=== PATIENT | female | born 1980 | race Caucasian/White ===

== ENCOUNTER 2020-08-05 09:05 | Outpatient (REF) | payer OTHER, SELFPAY ==
[2020-08-05 09:24] LABS: COVID-19 Test Negative (Negative)
== END 2020-08-05 09:06 | disposition home or self-care (01) ==
LOC: HO.LAB 09:05
PROVIDERS: Visit Provider Internal Medicine
DX: Z20.822 Contact with and (suspected) exposure to COVID-19 (principal)
CPT/HCPCS: 36415; 87635; C9803

== ENCOUNTER 2020-08-09 09:02 | Outpatient (REF) | payer OTHER, SELFPAY | END 2020-08-09 09:03 | disposition home or self-care (01) | LOC: HO.LAB 09:02 | PROVIDERS: Visit Provider Internal Medicine | DX: Z20.822 Contact with and (suspected) exposure to COVID-19 (principal) | CPT/HCPCS: C9803; U0003; U0005 ==

== ENCOUNTER 2020-08-22 08:04 | Outpatient (REF) | payer OTHER, SELFPAY | END 2020-08-22 08:05 | disposition home or self-care (01) | LOC: HO.LAB 08:04 | PROVIDERS: Visit Provider Internal Medicine | DX: Z20.822 Contact with and (suspected) exposure to COVID-19 (principal) | CPT/HCPCS: C9803; U0003; U0005 ==

== ENCOUNTER 2021-09-12 12:57 | Emergency (ER) | payer OTHER, SELFPAY ==
[2021-09-12 13:32] VITALS: BP 134/87; PULSE 113; RESP 18; TEMP 36.9; O2SAT 98; BMI 29.0
--- NOTE | 2021-09-12 15:35 | ED.SKABFB ---
HPI - Skin/Abscess/Foreign Bdy General Chief complaint: Skin/Abscess/Foreign Body Stated complaint: cyst between legs Time Seen by Provider: 09/12/21 15:11 Source: patient Mode of arrival: ambulatory History of Present Illness HPI narrative: 41-year-old female with no significant past medical history presenting to the ED complaining of abscess to left buttock/perineum area x4 days. Admits area is pointing, denies any active drainage. Admits to dysuria, denies pain with BMs but is afraid to have one. Denies fever, chills, abdominal pain, nausea, vomiting MD complaint: abscess/boil Onset (ago): day(s) Related Data Previous Rx's Medication Instructions Recorded cephalexin 500 mg capsule 500 mg PO QID 7 days #28 caps 09/12/21 doxycycline hyclate 100 mg tablet 100 mg PO BID 7 days #14 tabs 09/12/21 hydrocodone 5 mg-acetaminophen 325 1 tab PO Q8H PRN pain, severe 3 09/12/21 mg tablet days #9 tabs Allergies Allergy/AdvReac Type Severity Reaction Status Date / Time No Known Allergies Allergy Mild NOT Unverified 12/17/19 17:04 APPLICABLE Review of Systems Review of Systems: Constitutional: No Fever, No Chills ENT/Mouth: No Ear Pain, No sore throat, No Rhinorrhea, No Swallowing Difficulty Cardiovascular: No Chest Pain, No SOB Respiratory: No Cough, No Sputum Gastrointestinal: No Nausea, No Vomiting, No Diarrhea, No Constipation, No Abdominal pain Genitourinary: + Dysuria, No Urinary Frequency, No Hematuria, No Urinary Incontinence/retention, No Urgency, No Flank Pain Musculoskeletal: No joint pain, No Myalgias, No Joint Swelling Skin: +abscess, No rash Neuro: No Weakness Yes all other systems are reviewed and are negative [facility] Past Medical History Attestation statement: The following information was validated with the patient. Social History Social History Advance Directives: No Advance Directives Information Provided: No Physical Exam Vital Signs: Vital Signs: Last Vital Signs Temp 98.4 F 09/12/21 13:32 Pulse 113 H 09/12/21 13:32 Resp 18 09/12/21 13:32 BP 134/87 06/14/22 13:32 Pulse Ox 98 09/12/21 13:32 O2 Del Method 09/12/21 13:32 BMI result Body Mass Index 29.0 Const: Other: In pain General: cooperative and healthy appearing Orientation/consciousness: patient oriented x3 Limitations: no limitations HEENT: Head: Yes normal to inspection and Yes atraumatic Ears: hearing grossly normal bilaterally General nose exam: Normal external nose present Face and sinus: Yes normal facial exam Eyes: General: appearance normal, both eyes and all related structures EOM: EOMs intact bilaterally Neck: Neck: Yes normal visual inspection and Yes no meningeal signs Resp: Effort & Inspection: normal respiratory effort and no respiratory distress Cardio: Rate: regular rate Heart sounds: S1 normal heart sound present and S2 normal heart sound present GI: Inspection: Yes normal to inspection Palpation (GI): Soft to palpation, nontender, no guarding and not rigid : Other: + pointing fluctuant abscess noted to inferior left labia majora bordering perineum with extending cellulitis to mid labia majora and left buttock with induration. No perianal/rectal involvement. No evidence of Melissa gangrene Skin: Rashes: no rashes Neuro: General: patient oriented x3, tone normal and no meningeal signs Gait exam (Neuro): Normal gait present Extrem: General: Yes normal to inspection MDM - Skin/Abscess/Foreign Bdy MDM Narrative Medical decision making narrative: 41-year-old female with no significant past medical history presenting to the ED complaining of abscess to left buttock/perineum area x4 days. On exam tachycardic likely from pain, physical exam as above consistent with pointing abscess to inferior labia majora/perineum with extending cellulitis/induration. Plan: UA, I&D Differential Diagnosis Differential diagnosis: Likely abscess of skin or subcutaneous tissue and cellulitis Medical Records Attestation: I reviewed the patient's medical records. Lab Data Attestation: I reviewed the patient's lab results. Procedures Abscess I/D Site: other (L labia/perineum) Side (if applicable): left Sedation/analgesia: other (Morphine) Local Anesthetic: lidocaine 1% Amount of anesthesia used (mL): 10 Technique: incised with blade Amount of fluid expressed (mL): 30 Sent for culture/gram staining?: No Irrigation: No Packing used?: none Discharge Plan Discharge Clinical Impression: Cellulitis, Abscess of skin or subcutaneous tissue Patient Disposition: Home, Self-Care Instructions: Cellulitis (ED), Abscess (ED), Abscess Follow-up (ED) Additional Instructions: Your abscess was drained today in the emergency department, it is normal for to drain slightly for the next 48 hours, apply warm compresses. Doxycycline and Keflex for antibiotics please take as prescribed. Please stay out of the sun while taking doxycycline as makes her skin very sensitive. If area worsens, gross, becomes increasingly painful, you have fever or continue drainage please return to the emergency department Weston is an opiate pain medication, take only when pain is severe for the next 3 days. Please be re-evaluated in 2 days Prescriptions: New hydrocodone-acetaminophen 5-325 mg tablet 1 tab PO Q8H PRN (Reason: pain, severe) 3 Days Qty: 9 0RF Rx Instructions: Partial Fill upon patient request. cephalexin 500 mg capsule 500 mg PO QID 7 Days Qty: 28 0RF doxycycline hyclate 100 mg tablet 100 mg PO BID 7 Days Qty: 14 0RF Referrals: Papito Yusuf III, MD [Primary Care Provider] - 2 days (For re-evaluation) Soheila Maciel MD [Emergency Provider] - 2 days (For re-evaluation) Stand Alone Forms: Work/School Release
[2021-09-12] MEDS: Lidocaine HCl 1 % MPF 5 ML VIAL SUBCUT (15:42)
[2021-09-12] MEDS: Lidocaine 4 % Cream KIT 1 APPL TOPICAL (15:42)
[2021-09-12] MEDS: Ondansetron ODT 4 MG TAB.RAPDIS TRANSLINGU (15:43)
[2021-09-12] MEDS: Morphine Sulfate 10 MG/ML CARTRIDGE 5 MG IM ×2 (15:43→17:21)
== END 2021-09-12 17:30 | disposition home or self-care (01) ==
PROVIDERS: Emergency Provider Emergency Medicine; PCP Internal Medicine
DX: N76.4 Abscess of vulva (principal)
CPT/HCPCS: 56405; 96372; 99282; 99284; J2270

== ENCOUNTER 2021-12-22 08:37 | Emergency (ER) | payer OTHER, SELFPAY ==
--- NOTE | ~2021-12-22 | XR_ITS ---
EXAMINATION: XR CHEST 2 VIEW CLINICAL INFORMATION: Chest pain and tightness COMPARISON: 07/31/2018 TECHNIQUE: PA and lateral views of the chest obtained. FINDINGS: The lungs are clear. There are no pleural effusions. The cardiomediastinal silhouette is normal. XR/XR chest 2V IMPRESSION: No active cardiopulmonary disease.
--- NOTE | 2021-12-22 08:43 | ECG_ITS ---
Test Reason : CHEST PAIN Blood Pressure : / mmHG Vent. Rate : 068 BPM Atrial Rate : 068 BPM P-R Int : 148 ms QRS Dur : 086 ms QT Int : 374 ms P-R-T Axes : 046 032 002 degrees QTc Int : 397 ms Normal sinus rhythm Normal ECG No previous ECGs available Referred By: Generic ED Physician Electronically Signed By:SRINATH PACHECO
[2021-12-22 09:03] VITALS: BP 138/80; PULSE 72; RESP 18; TEMP 36.5; O2SAT 100; BMI 24.2
--- NOTE | 2021-12-22 10:09 | ED.CHESTPAIN ---
HPI - Chest Pain General Chief Complaint: Anxiety Stated Complaint: cherst pains Time Seen by Provider: 12/22/21 09:59 Source: patient and EMS Mode of arrival: ambulatory Limitations: no limitations History of Present Illness HPI narrative: 41-year-old female who has a history of [id number] diabetes who presents with reports of 1 month of chest tightness. Patient reports multiple life stressors. Patient tells me that she has 5 children at home and has had some stress with her kids. She does feel more anxious when she has stimulus around her. She feels better if she is able to isolate herself in her room and do some deep breathing techniques. She denies any symptoms with exertion. She denies associated nausea, vomiting, diaphoresis, dizziness, palpitations or shortness of breath. No leg swelling or leg pain. Patient denies any history of substance use. No recent travel or sick contact. Patient is not on any control medications. She denies any family of heart disease or blood clot history. Related Data Previous Rx's Medication Instructions Recorded cephalexin 500 mg capsule 500 mg PO QID 7 days #28 caps 09/12/21 doxycycline hyclate 100 mg tablet 100 mg PO BID 7 days #14 tabs 09/12/21 hydrocodone 5 mg-acetaminophen 325 1 tab PO Q8H PRN pain, severe 3 09/12/21 mg tablet days #9 tabs hydroxyzine HCl 25 mg tablet 25 mg PO Q6H PRN anxiety #20 tabs 12/22/21 Allergies Allergy/AdvReac Type Severity Reaction Status Date / Time No Known Allergies Allergy Mild NOT Unverified 12/17/19 17:04 APPLICABLE Review of Systems Review of Systems: Yes all other systems are reviewed and are negative Constitutional: Constitutional: Reports no additional constitutional complaints, Denies body ache(s), Denies chills, Denies fever(s), Denies headache(s) and Denies weakness Eyes: Eyes: Reports no additional eye complaints and Denies change in vision ENT: Reports system reviewed and no additional complaints, except as documented, Denies dizziness, Denies headache(s), Denies nasal congestion, Denies nasal discharge and Denies neck pain Cardiovascular: Cardiovascular: Reports no additional cardiovascular complaints, Reports chest pain, Denies leg edema and Denies dyspnea Respiratory: Respiratory: Reports no additional respiratory complaints, Denies cough and Denies dyspnea Gastrointestinal: Gastrointestinal: Reports no additional gastrointestinal complaints, Denies abdominal pain, Denies diarrhea, Denies nausea and Denies vomiting Genitourinary: Genitourinary: Reports no additional female genitourinary complaints and Denies urinary incontinence Musculoskeletal: Musculoskeletal: Reports no additional musculoskeletal complaints, Denies back pain, Denies arthralgias, Denies joint swelling, Denies neck pain, Denies numbness and Denies tingling Integumentary/Breasts: Skin/Breast: Reports system reviewed and no additional complaints, except as docu and Denies rash Neurologic: Reports system reviewed and no additional complaints, except as documented, Denies Abnormal speech present, Denies dizziness, Denies headache(s), Denies numbness, Denies tingling and Denies weakness PMFSH Past Medical History Attestation statement: The following information was validated with the patient. Source: old records reviewed and nursing notes reviewed Social History Social History Advance Directives: No Advance Directives Information Provided: Yes Physical Exam Vital Signs: Vital Signs: Last Vital Signs Temp 97.7 F 12/22/21 09:03 Pulse 72 12/22/21 09:03 Resp 18 12/22/21 09:03 BP 138/80 12/22/21 09:03 Pulse Ox 100 12/22/21 09:03 O2 Del Method 12/22/21 09:03 BMI result Body Mass Index 24.2 Const: General: cooperative, healthy appearing, comfortable and no acute distress Orientation/consciousness: patient oriented x3 Limitations: no limitations HEENT: Head: Yes normal to inspection Ears: hearing grossly normal bilaterally General nose exam: Normal external nose present Face and sinus: Yes normal facial exam Mouth: Normal oral and palatal mucosa present Throat: Yes posterior oropharynx normal Eyes: General: appearance normal, both eyes and all related structures Pupils: Equal, round and reactive pupils present Neck: Neck: Yes normal visual inspection Chest: Chest palpation & inspection: normal inspection of the chest Resp: Effort & Inspection: normal respiratory effort Auscultation: clear to auscultation bilaterally Cardio: Rate: regular rate Rhythm: regular rhythm Peripheral pulses: Peripheral pulses 2+ throughout GI: Inspection: Yes normal to inspection Palpation (GI): Soft to palpation and nontender Auscultation: normal bowel sounds Back/Spine/Pelvis: Thoracic/Lumbar Spine: thoracic and lumbar spine normal to inspection Skin: General skin exam: no rashes or lesions noted Neuro: General: patient oriented x3, no focal motor deficits and normal sensation to monofilament Cranial nerves: Yes Equal, round and reactive pupils present Cognition (Neuro): normal cognition Speech: No Abnormal speech present Gait exam (Neuro): Normal gait present Motor exam (neuro): 5/5 motor strength present throughout Extrem: General: Yes normal to inspection, Yes no pedal edema and Yes no calf tenderness Course Course Course Narrative: CARE team met with patient. Will refer to [facility] Counseling Reevaluation(s) Reevaluation #1: 1140-labs are unremarkable. EKG and chest x-ray show no acute finding. Patient met with care team and was given outpatient resources. Will send home with anjel yo. Reviewed worrisome signs and symptoms of when to return to the emergency room. Comfortable discharge home. MDM - Chest Pain MDM Narrative Medical decision making narrative: This is a 41-year-old female who presents with 1 month of chest tightness with no other associated symptoms which is nonexertional with multiple life stressors at home. Vitals are stable. Exam is normal. Patient has underlying history of diabetes and so I will check a EKG and labs. If normal will involve care team as patient will need some outpatient resources for therapy. Differential Diagnosis Differential diagnosis: PE, ACS Medical Records Data Attestation: I reviewed the patient's medical records. Lab Data Attestation: I reviewed the patient's lab results. Result diagrams: 12/22/21 10:50 12/22/21 10:50 Labs: Lab Results 12/22/21 12/22/21 12/22/21 Range/Units 10:50 10:50 10:50 WBC 10.1 (4.8-10.8) X10*3/uL RBC 5.00 (4.20-5.50) X10*6/uL Hgb 13.4 (12.0-16.0) g/dl Hct 41.4 (37.0-47.0) % MCV 82.8 (80.0-98.0) fL MCH 26.8 L (27.0-33.0) pg MCHC 32.4 (31.0-35.0) g/dl RDW 13.2 (11.0-16.0) % Plt Count 331 (160-400) X10*3/uL MPV 10.5 (9.4-12.3) fL Immature Gran % (Auto) 0.4 (0.0-0.4) % Neut % (Auto) 71.8 (45-73) % Lymph % (Auto) 19.7 L (20-40) % Pratt % (Auto) 7.1 (2-11) % Eos % (Auto) 0.6 (0-4) % Baso % (Auto) 0.4 (0-2) % Lymph # (Auto) 2.0 (1.2-4.9) X10*3/uL Pratt # (Auto) 0.7 (0.1-1.2) X10*3/uL Eos # (Auto) 0.1 (0.0-0.4) X10*3/uL Baso # (Auto) 0.0 (0.0-0.2) X10*3/uL Abs Immat Gran (auto) 0.04 H (0.00-0.03) X10*3/uL Absolute Neuts (auto) 7.3 (2.0-8.3) x10*3/uL Absolute Nucleated RBC 0.000 (0.0-0.012) X10*3/uL Nucleated RBC % (auto) 0.0 (0.0-0.2) /100WBC D-Dimer High Sensitivty NG/ML Sodium 140 (135-145) mmol/L Potassium 4.4 (3.3-5.1) mmol/L Chloride 103 (96-108) mmol/L Carbon Dioxide 25 (22-29) mmol/L Anion Gap 16 (12-20) BUN 13 (9-16) mg/dL Creatinine 0.70 (0.5-1.4) mg/dL Estim Creat Clear Calc 101.0 Estimated GFR > 60 Random Glucose 91 (60-115) mg/dL Calcium 9.6 (8.4-10.2) mg/dL Magnesium 1.9 (1.6-2.6) mg/dL Total Bilirubin 0.5 (0.0-1.0) mg/dL Direct Bilirubin 0.2 (0.0-0.5) mg/dL AST 13 (5-31) U/L ALT 17 (0-31) U/L Alkaline Phosphatase 98 (39-117) U/L Troponin I High Sens < 3.5 (<3.5-17.0) ng/L Total Protein 8.1 H (6.5-8.0) g/dL Albumin 4.4 (3.5-5.0) g/dL TSH 2.85 (0.32-4.0) uIU/mL 12/22/21 Range/Units 10:50 WBC (4.8-10.8) X10*3/uL RBC (4.20-5.50) X10*6/uL Hgb (12.0-16.0) g/dl Hct (37.0-47.0) % MCV (80.0-98.0) fL MCH (27.0-33.0) pg MCHC (31.0-35.0) g/dl RDW (11.0-16.0) % Plt Count (160-400) X10*3/uL MPV (9.4-12.3) fL Immature Gran % (Auto) (0.0-0.4) % Neut % (Auto) (45-73) % Lymph % (Auto) (20-40) % Pratt % (Auto) (2-11) % Eos % (Auto) (0-4) % Baso % (Auto) (0-2) % Lymph # (Auto) (1.2-4.9) X10*3/uL Pratt # (Auto) (0.1-1.2) X10*3/uL Eos # (Auto) (0.0-0.4) X10*3/uL Baso # (Auto) (0.0-0.2) X10*3/uL Abs Immat Gran (auto) (0.00-0.03) X10*3/uL Absolute Neuts (auto) (2.0-8.3) x10*3/uL Absolute Nucleated RBC (0.0-0.012) X10*3/uL Nucleated RBC % (auto) (0.0-0.2) /100WBC D-Dimer High Sensitivty < 150 NG/ML Sodium (135-145) mmol/L Potassium (3.3-5.1) mmol/L Chloride (96-108) mmol/L Carbon Dioxide (22-29) mmol/L Anion Gap (12-20) BUN (9-16) mg/dL Creatinine (0.5-1.4) mg/dL Estim Creat Clear Calc Estimated GFR Random Glucose (60-115) mg/dL Calcium (8.4-10.2) mg/dL Magnesium (1.6-2.6) mg/dL Total Bilirubin (0.0-1.0) mg/dL Direct Bilirubin (0.0-0.5) mg/dL AST (5-31) U/L ALT (0-31) U/L Alkaline Phosphatase (39-117) U/L Troponin I High Sens (<3.5-17.0) ng/L Total Protein (6.5-8.0) g/dL Albumin (3.5-5.0) g/dL TSH (0.32-4.0) uIU/mL Imaging Data Chest x-ray: Attestation: I personally reviewed and interpreted this imaging study as follows: Radiologist's impression: [address] [address] XRay Report Signed Patient: Malena Duggan MR#: [id number] : 1980 Acct:[id number] Age/Sex: 41 / F ADM Date: 12/22/21 Loc: .ED Attending Dr: Ordering Physician: Jillian Ferris NP Date of Service: 12/22/21 Procedure(s): XR chest 2V Accession Number(s): [id number] cc: Jillian Ferris NP~ EXAMINATION: XR CHEST 2 VIEW CLINICAL INFORMATION: Chest pain and tightness COMPARISON: 07/31/2018 TECHNIQUE: PA and lateral views of the chest obtained. FINDINGS: The lungs are clear. There are no pleural effusions. The cardiomediastinal silhouette is normal. XR/XR chest 2V IMPRESSION: No active cardiopulmonary disease. ? ECG Data ECG #1: Attestation: I personally reviewed and interpreted this ECG as follows: ECG interpretation date: 12/22/21 ECG interpretation time: 08:52 Interpretation: Normal sinus rhythm with a rate of 68, normal NH, normal QRS, normal QT Discharge Plan Discharge Clinical Impression: Atypical chest pain, Anxiety Patient Disposition: Home, Self-Care Instructions: Chest Pain (DC), Anxiety (ED) Additional Instructions: Your lab work, EKG and x-ray are reassuring You met with a social insurance adviser and were given a referreal for [facility] Counseling Prescriptions: New hydroxyzine HCl 25 mg tablet 25 mg PO Q6H PRN (Reason: anxiety) Qty: 20 0RF No Action hydrocodone-acetaminophen 5-325 mg tablet 1 tab PO Q8H PRN (Reason: pain, severe) 3 Days Qty: 9 0RF Rx Instructions: Partial Fill upon patient request. cephalexin 500 mg capsule 500 mg PO QID 7 Days Qty: 28 0RF doxycycline hyclate 100 mg tablet 100 mg PO BID 7 Days Qty: 14 0RF Referrals: Papito Yusuf III, MD [Primary Care Provider] - 1 week (as needed) Stand Alone Forms: Work/School Release
--- NOTE | 2021-12-22 10:34 | MHC.CARE ---
CARE Team met with pt for a consult for anxiety. Pt presented to the ED with increased anxiety. We discussed hx of anxiety and what prompted her to come into the ED. Pt reported to have increased anxiety over the last month induced by stressors at home. Pt requested a [facility] referral for therapy services. Pt was also referred to Case management for healthcare proxy information and education. This scenario writer consulted with Jillian Ferris NP to provide pt with referrals. Plan is for pt to d/c today. Plan for CARE Team to complete [facility] referral and Pt provided with [facility] information.
[2021-12-22 10:56] LABS: MANUAL DIFF FLAG NO
[2021-12-22 10:58] LABS: Basophils Percent Auto 0.4 % (0-2); Eosinophils Absolute Auto 0.1 X10*3/uL (0.0-0.4); Eosinophils Percent Auto 0.6 % (0-4); Hematocrit 41.4 % (37.0-47.0); Hemoglobin 13.4 g/dl (12.0-16.0); Imm Gran Abs Auto 0.04 X10*3/uL (0.00-0.03); Imm Gran Pct Auto 0.4 % (0.0-0.4); Lymphocytes Percent Auto 19.7 % (20-40); Mean Corpuscular HGB Conc 32.4 g/dl (31.0-35.0); Mean Corpuscular Hemoglobin 26.8 pg (27.0-33.0); Mean Corpuscular Volume 82.8 fL (80.0-98.0); Mean Platelet Volume 10.5 fL (9.4-12.3); Monocytes Absolute Auto 0.7 X10*3/uL (0.1-1.2); Monocytes Percent Auto 7.1 % (2-11); Neutrophils Absolute Auto 7.3 x10*3/uL (2.0-8.3); Neutrophils Percent Auto 71.8 % (45-73); Platelet Count 331 X10*3/uL (160-400); Red Cell Distribution Width 13.2 % (11.0-16.0); White Blood Count 10.1 X10*3/uL (4.8-10.8)
[2021-12-22 11:09] LABS: D Dimer High Sensitivity < 150 NG/ML
[2021-12-22 11:11] LABS: Alanine Aminotransferase 17 U/L (0-31); Albumin Level 4.4 g/dL (3.5-5.0); Alkaline Phosphatase 98 U/L (39-117); Anion Gap 16 (12-20); Aspartate Amino Transferase 13 U/L (5-31); Bilirubin Direct 0.2 mg/dL (0.0-0.5); Bilirubin Total 0.5 mg/dL (0.0-1.0); Blood Urea Nitrogen 13 mg/dL (9-16); Calcium 9.6 mg/dL (8.4-10.2); Carbon Dioxide 25 mmol/L (22-29); Chloride 103 mmol/L (96-108); Estimated Glomerular Filt Rate > 60; Glucose Random 91 mg/dL (60-115); Magnesium 1.9 mg/dL (1.6-2.6); Potassium 4.4 mmol/L (3.3-5.1); Sodium 140 mmol/L (135-145); Total Protein 8.1 g/dL (6.5-8.0)
[2021-12-22 11:18] LABS: Troponin-I High Sensitivity < 3.5 ng/L (<3.5-17.0)
[2021-12-22 11:33] LABS: Thyroid Stimulating Hormone 2.85 uIU/mL (0.32-4.0)
== END 2021-12-22 11:46 | disposition home or self-care (01) ==
PROVIDERS: Nurse Practitioner Family; Emergency Provider Emergency Medicine; PCP Internal Medicine
DX: R07.89 Other chest pain (principal); F41.9 Anxiety disorder, unspecified; E11.9 Type 2 diabetes mellitus without complications
CPT/HCPCS: 36415; 71046; 80048; 80076; 83735; 84443; 84484; 85025; 85379; 93005; 99283

== ENCOUNTER 2024-01-06 20:51 | Emergency (ER) | payer OTHER, SELFPAY ==
--- NOTE | ~2024-01-06 | XR_ITS ---
EXAMINATION: XR CHEST CLINICAL INFORMATION: Chest pain COMPARISON: 12/22/2021 TECHNIQUE: 2 views of the chest were obtained. FINDINGS: No significant abnormality is noted involving the heart, lungs, mediastinum, bony thorax or soft tissues. XR/XR chest 2V IMPRESSION: Unremarkable examination. Electronically signed by: Bebo De La Fuente MD 01/06/2024 11:46 PM EDT
[2024-01-06 21:38] VITALS: BP 142/95; PULSE 81; RESP 19; TEMP 36.9; O2SAT 99; BMI 24.2
--- NOTE | 2024-01-06 21:43 | ECG_ITS ---
Test Reason : CHEST PAIN Blood Pressure : / mmHG Vent. Rate : 072 BPM Atrial Rate : 072 BPM P-R Int : 158 ms QRS Dur : 084 ms QT Int : 382 ms P-R-T Axes : 055 020 014 degrees QTc Int : 418 ms Normal sinus rhythm Normal ECG When compared with ECG of 22-DEC-2021 08:52, No significant change was found Referred By: Generic ED Physician Electronically Signed By:HENRI SHELLEY MD
[2024-01-06 22:06] LABS: MANUAL DIFF FLAG NO
[2024-01-06 22:25] LABS: Appearance Urine Clear; Color Urine Yellow; Glucose Urine UA >=1000 mg/dL (Negative); Leukocyte Esterase Urine Negative (Negative); Nitrite Urine Negative (Negative); PH 5.5 (5.0-9.0); Specific Gravity - Urine >= 1.030 (1.005-1.025); UMIC TRIGGER UACC YES; Urine Blood Negative (Negative); Urine Ketones 15 mg/dL (Negative); Urine Protein Negative (Neg-Trace)
[2024-01-06 22:26] LABS: Basophils Percent Auto 0.4 % (0-2); Eosinophils Absolute Auto 0.1 X10*3/uL (0.0-0.4); Eosinophils Percent Auto 1.6 % (0-4); Hematocrit 38.9 % (37.0-47.0); Hemoglobin 13.2 g/dl (12.0-16.0); Imm Gran Abs Auto 0.02 X10*3/uL (0.00-0.03); Imm Gran Pct Auto 0.2 % (0.0-0.4); Lymphocytes Absolute Auto 2.7 X10*3/uL (1.2-4.9); Lymphocytes Percent Auto 32.4 % (20-40); Mean Corpuscular HGB Conc 33.9 g/dl (31.0-35.0); Mean Corpuscular Hemoglobin 26.8 pg (27.0-33.0); Mean Corpuscular Volume 78.9 fL (80.0-98.0); Mean Platelet Volume 11.3 fL (9.4-12.3); Monocytes Absolute Auto 0.5 X10*3/uL (0.1-1.2); Neutrophils Absolute Auto 4.9 x10*3/uL (2.0-8.3); Neutrophils Percent Auto 59.4 % (45-73); Platelet Count 327 X10*3/uL (160-400); Red Blood Count 4.93 X10*6/uL (4.20-5.50); Red Cell Distribution Width 13.3 % (11.0-16.0); White Blood Count 8.2 X10*3/uL (4.8-10.8)
[2024-01-06 22:27] LABS: UPreg QC Valid YES; Urine Pregnancy NEGATIVE (NEGATIVE)
[2024-01-06 22:49] LABS: Beta-Hydroxybutyrate 0.37 mmol/L (0.02-0.27)
[2024-01-06 22:59] LABS: Troponin-I High Sensitivity < 2.7 ng/L (<3.5-17.0)
[2024-01-06 23:05] LABS: Anion Gap 15 (12-20); Blood Urea Nitrogen 16 mg/dL (9-16); Calcium 9.8 mg/dL (8.4-10.2); Carbon Dioxide 22 mmol/L (22-29); Chloride 101 mmol/L (96-108); Creatinine Clr Calc Pharmacy 67.9; Estimated Glomerular Filt Rate 60; Glucose Random 387 mg/dL (60-115); Potassium 3.6 mmol/L (3.3-5.1); Sodium 134 mmol/L (135-145)
[2024-01-06 23:43] LABS: Bacteria Urine Trace (None Seen); Hyaline Casts Urine 0-2 /LPF (0-2); RBC Urine 0-2 /HPF (0-2); Squamous Epithelial Cell Urine 0-2 /HPF (0-2); WBC Urine 0-5 /HPF (0-5)
== END 2024-01-07 00:01 | disposition left against medical advice (07) ==
PROVIDERS: Emergency Provider Emergency Medicine; PCP Internal Medicine
DX: E11.65 Type 2 diabetes mellitus with hyperglycemia (principal); R07.9 Chest pain, unspecified; Z79.84 Long term (current) use of oral hypoglycemic drugs
CPT/HCPCS: 36415; 71046; 80048; 81001; 81025; 82010; 84484; 85025; 93005; 99283

== ENCOUNTER → 2024-01-06 21:43 | Outpatient (BNV) | payer OTHER, SELFPAY | PROVIDERS: Emergency Provider Emergency Medicine; PCP Internal Medicine; Visit Provider Internal Medicine Cardiovascular Disease | DX: R07.9 Chest pain, unspecified (principal) | CPT/HCPCS: 93010 ==

== ENCOUNTER 2024-04-20 20:07 | Emergency (ER) | payer OTHER, SELFPAY ==
--- NOTE | ~2024-04-20 | CT_ITS ---
CLINICAL HISTORY: abdominal pain CT abdomen and pelvis with contrast Comparison: None Findings: No consolidation of the imaged lung bases. Mild steatotic change of the imaged liver. Spleen is nonenlarged. The adrenal glands are normal. Pancreas and gallbladder are unremarkable for technique. Nonobstructing nephrolithiasis of the lower pole of the left kidney measures 0.5 cm. No hydronephrosis. No suspicious features of the imaged cystic lesions of the kidneys. Small mesenteric and periaortic lymph nodes are nonspecific and likely reactive. Small intestine in the left hemiabdomen is mildly patulous and measuring at the upper limits of normal. No definite small bowel obstruction. Fluid in the large intestine can be seen with diarrhea type illnesses and colitis. Imaged appendix is gas-filled and nondilated. Uterus is anteverted with likely 2 cm dorsal-superior fibroid. No adnexal soft tissue mass by CT. Urinary bladder is unremarkable for CT. No free intraperitoneal air. Subcutaneous edema is noted. Multifocal Schmorl's nodes. Limbus vertebrae of the L4. Mild degenerative changes of the imaged hips. Bone islands noted. IMPRESSION: 1. Fluid in the large intestine is nonspecific and can be seen with colitis and diarrhea type illnesses. 2. Borderline dilatation of the small intestine left hemiabdomen without definite small bowel obstruction. 3. No pneumatosis or free intraperitoneal air. 4. Nonobstructing nephrolithiasis of the left kidney. This document has been electronically signed by: Garth Vizcarra MD on 04/20/2024 22:40:33
[2024-04-20 20:21] VITALS: BP 151/95; PULSE 93; RESP 20; TEMP 36.8; O2SAT 99; BMI 28.1
--- NOTE | 2024-04-20 20:25 | ED.ABDPAIN ---
HPI - Abdominal Pain General Chief Complaint: Abdominal Pain Stated Complaint: abd pain Time Seen by Provider: 04/20/24 20:42 Source: patient Mode of arrival: ambulatory Limitations: no limitations History of Present Illness ED Provider: HPI narrative: Patient diabetic noticed pain lower abdomen a week ago got better since last night noticed pain again mostly in the lower abdomen bilateral started at 20:00 yesterday today she vomited 4 times and had 2 loose bowels feels hungry pain is cramping diffuse no fever no chills no urinary complaint no history of gallstones patient's blood sugar was 220 earlier Related Data Previous Rx's ?Medication ?Instructions ?Recorded cephalexin 500 mg capsule 500 mg PO QID 7 days #28 caps 09/12/21 doxycycline hyclate 100 mg tablet 100 mg PO BID 7 days #14 tabs 09/12/21 hydrocodone 5 mg-acetaminophen 325 1 tab PO Q8H PRN pain, severe 3 09/12/21 mg tablet days #9 tabs hydroxyzine HCl 25 mg tablet 25 mg PO Q6H PRN anxiety #20 tabs 12/22/21 ondansetron 4 mg disintegrating 4 mg PO Q6-8H PRN nausea and 04/20/24 tablet vomiting #7 tabs Allergies Allergy/AdvReac Type Severity Reaction Status Date / Time No Known Allergies Allergy Mild NOT Verified 04/20/24 20:23 APPLICABLE Review of Systems Review of Systems Yes all other systems are reviewed and are negative [facility] Social History Social History Advance Directives: No Advance Directives Information Provided: No Physical Exam ED Vital Signs: Vital Signs - 24 hr 04/20/24 20:21 04/20/24 22:30 04/21/24 00:19 Temperature 98.3 F 98.2 F 97.3 F Pulse Rate 93 81 88 Respiratory Rate 20 19 14 Blood Pressure 151/95 H 121/80 101/63 Pulse Oximetry 99 97 99 Oxygen Delivery Method Room Air Room Air Room Air 04/21/24 00:21 Temperature 97.3 F Pulse Rate 88 Respiratory Rate 14 Blood Pressure 101/63 Pulse Oximetry 99 Oxygen Delivery Method Room Air BMI result Body Mass Index 28.1 Appearance: Alert. Oriented X3. No acute distress. Eyes: No pallor or icterus ENT: Pharynx normal. Oral Mucosa moist Neck: Normal inspection. Neck supple. CVS: Normal heart rate and rhythm. Pulses normal. Respiratory: No respiratory distress. Equal air entry bilateral, no wheezing/rales/rhonchi Abdomen: Soft and diffuse tenderness no rebound tenderness Rasmussen sign negative Bowel sounds are present, no mass palpable, no CVA tenderness Skin: Skin warm and dry. Normal skin color. Normal skin turgor. Extremities: No lower extremity edema. No calf tenderness Neuro: Oriented X 3. No motor deficit. Course Course Course Narrative: This is an RME: Additional HPI, ROS, PE not included below will be deferred to primary provider. RME assessment and note performed by: So Martino PA-C This is a [id number] who presents to the Er with complaints of abdominal pain, nausea, vomiting since this morning. Plan: Labs, UA, CT ab/pelv Medical Decision Making Medical Decision Making [facility] Narrative: Patient with vomiting and diarrhea with diffuse abdominal cramps labs are stable CT scan without any acute pathology patient is taking p.o. fluids feeling better will discharge patient home Differential Diagnosis Differential Diagnoses: The differential diagnosis associated with the presentation includes Diverticulitis/gastroenteritis/ Lab Data [facility] Lab Attestation statement: I reviewed the patient's lab results. 04/20/24 21:00 04/20/24 21:00 Labs: Lab Results 04/20/24 04/20/24 Range/Units 20:59 21:00 WBC 11.7 H (4.8-10.8) X10*3/uL RBC 5.24 (4.20-5.50) X10*6/uL Hgb 12.9 (12.0-16.0) g/dl Hct 39.7 (37.0-47.0) % MCV 75.8 L (80.0-98.0) fL MCH 24.6 L (27.0-33.0) pg MCHC 32.5 (31.0-35.0) g/dl RDW 13.5 (11.0-16.0) % Plt Count 361 (160-400) X10*3/uL MPV 10.4 (9.4-12.3) fL Immature Gran % (Auto) 0.3 (0.0-0.4) % Neut % (Auto) 86.4 H (45-73) % Lymph % (Auto) 9.2 L (20-40) % [place] % (Auto) 3.8 (2-11) % Eos % (Auto) 0.2 (0-4) % Baso % (Auto) 0.1 (0-2) % Lymph # (Auto) 1.1 L (1.2-4.9) X10*3/uL [place] # (Auto) 0.4 (0.1-1.2) X10*3/uL Eos # (Auto) 0.0 (0.0-0.4) X10*3/uL Baso # (Auto) 0.0 (0.0-0.2) X10*3/uL Abs Immat Gran (auto) 0.03 (0.00-0.03) X10*3/uL Absolute Neuts (auto) 10.1 H (2.0-8.3) x10*3/uL Absolute Nucleated RBC 0.000 (0.0-0.012) X10*3/uL Nucleated RBC % (auto) 0.0 (0.0-0.2) /100WBC Sodium 137 (135-145) mmol/L Potassium 3.9 (3.3-5.1) mmol/L Chloride 105 (96-108) mmol/L Carbon Dioxide 23 (22-29) mmol/L Anion Gap 13 (12-20) BUN 12 (9-16) mg/dL Creatinine 0.63 (0.5-1.4) mg/dL Estim Creat Clear Calc 124.5 Estimated GFR > 60 Random Glucose 266 H (60-115) mg/dL Calcium 8.5 D (8.4-10.2) mg/dL Magnesium 1.9 (1.6-2.6) mg/dL Total Bilirubin 0.4 (0.0-1.0) mg/dL Direct Bilirubin 0.1 (0.0-0.5) mg/dL AST 21 (5-31) U/L ALT 25 (0-31) U/L Alkaline Phosphatase 79 (39-117) U/L Total Protein 8.3 H (6.5-8.0) g/dL Albumin 4.2 (3.5-5.0) g/dL Beta HCG, Quant < 2 mIU/mL Influenza Type A (PCR) NEGATIVE (Negative) Influenza Type B (PCR) NEGATIVE (Negative) RSV RNA Qual (PCR) NEGATIVE (Negative) SARS-CoV-2 RNA (RT-PCR) NEGATIVE (Negative) Independent Interpretation I performed an independent interpretation of an: CT Scan Interpretation: No acute Radiology Impression Discussion of test interpretation with radiology: I have reviewed the radiologist's reading. Medications Administered Discontinued Medications Generic Name Dose Route Start Last Admin Trade Name Freq PRN Reason Stop Dose Admin Dicyclomine HCl 20 mg 04/20/24 23:04 04/20/24 23:24 Dicyclomine Hcl 10 Mg Capsule PO 04/20/24 23:05 20 mg ONCE ONE Administration Sodium Chloride 1,000 mls @ 999 mls/hr 04/20/24 20:56 04/20/24 22:05 Ns IV 04/20/24 21:56 Infused .Q1H1M ONE Infusion Iohexol 85 ml 04/20/24 21:52 04/20/24 21:53 Iohexol 350 Mg/Ml 100 Ml Infus..Btl IV 04/20/24 21:53 85 ml ONCE ONE Administration Metoclopramide HCl 10 mg 04/20/24 23:04 04/20/24 23:24 Metoclopramide Hcl 10 Mg/2 Ml Vial IVPUSH 04/20/24 23:05 10 mg ONCE ONE Administration Morphine Sulfate 4 mg 04/20/24 20:56 04/20/24 21:04 Morphine Sulfate 4 Mg/Ml Cartridge IVPUSH 04/20/24 20:57 4 mg ONCE ONE Administration Protocol Ondansetron HCl 4 mg 04/20/24 20:27 04/20/24 20:30 Ondansetron Odt 4 Mg Tab.Rapdis TRANSLINGU 04/20/24 20:28 4 mg ONCE ONE Administration Ondansetron HCl 4 mg 04/20/24 20:56 04/20/24 21:04 Ondansetron Hcl 4 Mg/2 Ml Vial IVPUSH 04/20/24 20:57 4 mg ONCE ONE Administration Discharge Plan Discharge Clinical Impression: Gastroenteritis Patient Disposition: Home, Self-Care Instructions: Gastroenteritis (ED) Additional Instructions: Drink plenty of fluids Medicine for nausea as prescribed Likely have pain from viral gastroenteritis Follow with PCP if not better Prescriptions: New ondansetron 4 mg tablet,disintegrating 4 mg PO Q6-8H PRN (Reason: nausea and vomiting) Qty: 7 0RF No Action hydrocodone-acetaminophen 5-325 mg tablet 1 tab PO Q8H PRN (Reason: pain, severe) 3 Days Qty: 9 0RF Rx Instructions: Partial Fill upon patient request. cephalexin 500 mg capsule 500 mg PO QID 7 Days Qty: 28 0RF doxycycline hyclate 100 mg tablet 100 mg PO BID 7 Days Qty: 14 0RF hydroxyzine HCl 25 mg tablet 25 mg PO Q6H PRN (Reason: anxiety) Qty: 20 0RF Interventions: ED Discharge Assessment Last Done: 04/21/24 00:21 Discharge Date/Time: 04/21/24 00:21 Print Language: Divehi
[2024-04-20] MEDS: Ondansetron ODT 4 MG TAB.RAPDIS TRANSLINGU (20:30)
[2024-04-20] MEDS: 0.9 % Sodium Chloride 1,000 ML 999 ML IV (21:04)
[2024-04-20] MEDS: Morphine Sulfate 4 MG/ML CARTRIDGE IVPUSH (21:04)
[2024-04-20] MEDS: ondansetron HCL 4 MG/2 ML VIAL IVPUSH (21:04)
[2024-04-20 21:05] LABS: MANUAL DIFF FLAG NO
[2024-04-20 21:07] LABS: Basophils Percent Auto 0.1 % (0-2); Eosinophils Percent Auto 0.2 % (0-4); Hematocrit 39.7 % (37.0-47.0); Hemoglobin 12.9 g/dl (12.0-16.0); Imm Gran Abs Auto 0.03 X10*3/uL (0.00-0.03); Imm Gran Pct Auto 0.3 % (0.0-0.4); Lymphocytes Absolute Auto 1.1 X10*3/uL (1.2-4.9); Lymphocytes Percent Auto 9.2 % (20-40); Mean Corpuscular HGB Conc 32.5 g/dl (31.0-35.0); Mean Corpuscular Hemoglobin 24.6 pg (27.0-33.0); Mean Corpuscular Volume 75.8 fL (80.0-98.0); Mean Platelet Volume 10.4 fL (9.4-12.3); Monocytes Absolute Auto 0.4 X10*3/uL (0.1-1.2); Monocytes Percent Auto 3.8 % (2-11); Neutrophils Absolute Auto 10.1 x10*3/uL (2.0-8.3); Neutrophils Percent Auto 86.4 % (45-73); Platelet Count 361 X10*3/uL (160-400); Red Blood Count 5.24 X10*6/uL (4.20-5.50); Red Cell Distribution Width 13.5 % (11.0-16.0); White Blood Count 11.7 X10*3/uL (4.8-10.8)
[2024-04-20 21:30] LABS: Alanine Aminotransferase 25 U/L (0-31); Albumin Level 4.2 g/dL (3.5-5.0); Alkaline Phosphatase 79 U/L (39-117); Anion Gap 13 (12-20); Aspartate Amino Transferase 21 U/L (5-31); Bilirubin Direct 0.1 mg/dL (0.0-0.5); Bilirubin Total 0.4 mg/dL (0.0-1.0); Blood Urea Nitrogen 12 mg/dL (9-16); Calcium 8.5 mg/dL (8.4-10.2); Carbon Dioxide 23 mmol/L (22-29); Chloride 105 mmol/L (96-108); Creatinine Clr Calc Pharmacy 124.5; Estimated Glomerular Filt Rate > 60; Glucose Random 266 mg/dL (60-115); Magnesium 1.9 mg/dL (1.6-2.6); Potassium 3.9 mmol/L (3.3-5.1); Sodium 137 mmol/L (135-145); Total Protein 8.3 g/dL (6.5-8.0)
[2024-04-20 21:32] LABS: HCG Quantitative < 2 mIU/mL
[2024-04-20 21:43] LABS: Influenza A PCR NEGATIVE (Negative); Influenza B PCR NEGATIVE (Negative); Resp Syncy Virus RNA Qual PCR NEGATIVE (Negative); SARS COV2 PCR INHOUSE NEGATIVE (Negative)
[2024-04-20] MEDS: iohexoL 350 MG/ML 100 ML INFUS..BTL 85 ML IV (21:53)
[2024-04-20 22:30] VITALS: BP 121/80; PULSE 81; RESP 19; TEMP 36.8; O2SAT 97
[2024-04-20] MEDS: Metoclopramide HCl 10 MG/2 ML VIAL IVPUSH (23:24)
[2024-04-20] MEDS: Dicyclomine HCl 10 MG CAPSULE 20 MG PO (23:24)
[2024-04-21 00:19] VITALS: BP 101/63; PULSE 88; RESP 14; TEMP 36.3; O2SAT 99
[2024-04-21 00:21] VITALS: BP 101/63; PULSE 88; RESP 14; TEMP 36.3; O2SAT 99
== END 2024-04-21 00:21 | disposition home or self-care (01) ==
PROVIDERS: Physician Assistant Medical; Emergency Provider Internal Medicine; PCP Internal Medicine
DX: K52.9 Noninfective gastroenteritis and colitis, unspecified (principal); R10.30 Lower abdominal pain, unspecified; R11.10 Vomiting, unspecified; Z03.818 Encounter for observation for suspected exposure to other biological agents ruled out
CPT/HCPCS: 0241U; 74177; 80048; 80076; 83735; 84702; 85025; 96361; 96374; 96375; 99284; J2270; J2405; J2765; Q9967

== ENCOUNTER → 2024-04-20 20:34 | Outpatient (BNV) | payer OTHER, SELFPAY | PROVIDERS: Emergency Provider Internal Medicine; PCP Internal Medicine; Visit Provider Radiology Neuroradiology | DX: R10.9 Unspecified abdominal pain (principal) | CPT/HCPCS: 74177 ==